=== PATIENT | female | born 1945 | race Caucasian/White ===

== ENCOUNTER 2022-12-14 21:25 | Inpatient (IN) ==
[2022-12-14 21:51] LABS: ABS Basophils 0.1 10^3/ul (0-0.2); ABS Lymphocytes 0.4 10^3/ul (1.0-4.8); ABS Monocytes 0.8 10^3/ul (0-0.8); ABS Neutrophils 8.2 10^3/ul (1.5-7.7); Eosinophil % 0.4 %; Hematocrit 23 % (35-47); Hemoglobin 7.4 g/dL (12.0-16.0); Lymphocyte % 3.8 %; Mean Corpuscular HGB Conc 33 g/dL (31-36); Mean Corpuscular Hemoglobin 32 pg (27-31); Mean Corpuscular Volume 96 fL (80-97); Nucleated Red Blood Cells % 0.1; Platelet Count 165 10^3/uL (150-450); Red Blood Count 2.35 10^6 /uL (3.70-4.87); Red Cell Distribution Width 18 % (10-15); White Blood Count 9.4 10^3/uL (3.5-10.8)
[2022-12-14 22:08] LABS: INR 5.75 (0.88-1.18)
[2022-12-14 22:15] LABS: High Sens Troponin Baseline 73 pg/mL (<15)
[2022-12-14] MEDS ORDERED: Furosemide 40 mg/4 ml IV VIAL IV SLOW PU ONE (22:16)
[2022-12-14 22:30] LABS: ALT 20 U/L (7-52); Albumin 3.8 g/dL (3.2-5.2); Albumin/Globulin Ratio 1.7 (1-3); Alkaline Phosphatase 73 U/L (35-149); Blood Urea Nitrogen 21 mg/dL (6-24); CO2 Carbon Dioxide 27 mmol/L (22-32); Calcium 8.8 mg/dL (8.6-10.3); Chloride 100 mmol/L (101-111); Creatinine, Serum 1.32 mg/dL (0.51-0.95); Globulin 2.3 g/dL (2-4); Glucose 144 mg/dL (70-100); Sodium 136 mmol/L (135-145); Total Protein 6.1 g/dL (6.4-8.9); eGFR CKD-EPI 41.6 (>60)
[2022-12-14 23:26] LABS: High Sensitivity Troponin 1 Hr 82 pg/mL (<15)
[2022-12-14 23:32] LABS: Anion Gap 9 mmol/L (2-11)
[2022-12-14] MEDS ORDERED: Levalbuterol HFA INHALER MDI INH PRN (23:41)
[2022-12-15] MEDS ORDERED: Mometasone 220 MCG MDI INH PRN (00:01)
[2022-12-15] MEDS: Ondansetron 4 mg VIAL 2 MG/ML 2 ml VIAL IV PRN ×2 (01:35→20:13)
[2022-12-15 05:44] LABS: Hematocrit 23 % (35-47); Hemoglobin 7.4 g/dL (12.0-16.0); Mean Corpuscular HGB Conc 33 g/dL (31-36); Mean Corpuscular Hemoglobin 31 pg (27-31); Mean Corpuscular Volume 96 fL (80-97); Mean Platelet Volume 8.1 fL (7.4-10.4); Platelet Count 169 10^3/uL (150-450); Red Blood Count 2.38 10^6 /uL (3.70-4.87); Red Cell Distribution Width 18 % (10-15); White Blood Count 5.8 10^3/uL (3.5-10.8)
[2022-12-15 05:46] LABS: Potassium, Whole Blood 2.9 mmol/L (3.4-4.5)
[2022-12-15 05:53] LABS: INR 4.64 (0.88-1.18)
[2022-12-15 06:05] LABS: ABS Eosinophils 0.1 10^3/ul (0-0.6); ABS Lymphocytes 0.7 10^3/ul (1.0-4.8); ABS Monocytes 0.7 10^3/ul (0-0.8); ABS Neutrophils 4.3 10^3/ul (1.5-7.7); Eosinophil % 1.4 %; Lymphocyte % 12.2 %; Nucleated Red Blood Cells % 0.1
[2022-12-15 06:20] LABS: Albumin 3.6 g/dL (3.2-5.2); Calcium 8.6 mg/dL (8.6-10.3); Magnesium 1.9 mg/dL (1.9-2.7); Potassium 3.1 mmol/L (3.5-5.0); Total Bilirubin 1.9 mg/dL (0.2-1.0)
[2022-12-15 06:26] LABS: Albumin/Globulin Ratio 1.6 (1-3); Creatinine, Serum 1.45 mg/dL (0.51-0.95); Globulin 2.2 g/dL (2-4); Phosphorus 4.1 mg/dL (2.5-5.0); Total Protein 5.8 g/dL (6.4-8.9); eGFR CKD-EPI 37.2 (>60)
[2022-12-15] MEDS ORDERED: Potassium Chloride LIQUID 20 MEQ/15 ML LIQUID PO ONE ×2 (06:59→17:08)
[2022-12-15 11:37] LABS: C Reactive Protein 123.12 mg/L (<8.01)
[2022-12-15] MEDS ORDERED: fentaNYL 100 mcg/2 ml 50 MCG/ML VIAL ONE (11:57)
[2022-12-15] MEDS ORDERED: Naloxone 0.4 mg VIAL 0.4 mg/ml 1 ml VIAL ONE (11:57)
[2022-12-15] MEDS ORDERED: Midazolam 5 mg/5 ml VIAL 1 mg/ml 5 ml VIAL (5 mg) ONE (11:57)
[2022-12-15] MEDS ORDERED: Flumazenil 0.5 mg/5 ml 0.1 MG/ML 5 ml VIAL ONE (11:58)
[2022-12-15] MEDS ORDERED: fentaNYL 100 mcg/2 ml 50 MCG/ML VIAL IV SLOW PU ONE (13:06)
[2022-12-15] MEDS ORDERED: Midazolam 10 mg/10 ml VIAL 1 mg/ml 10 ml VIAL (10 mg) IV SLOW PU ONE (13:06)
[2022-12-15] MEDS: NS 0.9% 1000 ml BAG 1,000 ML IV ONE ×2 (13:07→21:17)
[2022-12-15 13:53] LABS: Direct Bilirubin 0.3 mg/dL (0.03-0.18)
[2022-12-15] MEDS ORDERED: cefTRIAXone 2 gm/50 mL D5W 2 GM/50 ML BAG IV SCH (17:30)
[2022-12-15] MEDS: cefTRIAXone 1 gm/50 mL D5W 1 GM/50 ML BAG IV SCH (18:38)
[2022-12-15] MEDS: Multivitamins/Minerals TAB PO SCH (19:13)
[2022-12-15 20:31] LABS: Ferritin 732.9 ng/mL (11-307)
[2022-12-15] MEDS ORDERED: Furosemide 40 mg/4 ml IV VIAL IV SLOW PU ONE (20:36)
[2022-12-15] MEDS: KCL 20 MEQ/100 ML IVPREMIX 20 MEQ/100 ML BAG IV SCH (22:09)
[2022-12-15] MEDS: Senna TAB 8.6 mg TAB PO SCH (22:11)
[2022-12-16] MEDS: KCL 20 MEQ/100 ML IVPREMIX 20 MEQ/100 ML BAG IV SCH ×5 (02:30→17:34)
[2022-12-16] MEDS ORDERED: KCL 20 MEQ/100 ML IVPREMIX 20 MEQ/100 ML BAG ONE (06:35)
[2022-12-16] MEDS ORDERED: Furosemide 20 mg/2 ml IV VIAL IV ONE (08:00)
[2022-12-16] MEDS: Multivitamins/Minerals TAB PO SCH (08:34)
[2022-12-16 08:36] LABS: ABS Basophils 0.1 10^3/ul (0-0.2); ABS Eosinophils 0.1 10^3/ul (0-0.6); ABS Lymphocytes 0.5 10^3/ul (1.0-4.8); ABS Monocytes 0.6 10^3/ul (0-0.8); ABS Neutrophils 4.9 10^3/ul (1.5-7.7); Eosinophil % 1.5 %; Hematocrit 20 % (35-47); Hemoglobin 6.1 g/dL (12.0-16.0); Lymphocyte % 8.5 %; Mean Corpuscular HGB Conc 31 g/dL (31-36); Mean Corpuscular Hemoglobin 31 pg (27-31); Mean Corpuscular Volume 98 fL (80-97); Mean Platelet Volume 8.9 fL (7.4-10.4); Nucleated Red Blood Cells % 0.1; Platelet Count 172 10^3/uL (150-450); Red Blood Count 1.99 10^6 /uL (3.70-4.87); Red Cell Distribution Width 18 % (10-15); White Blood Count 6.2 10^3/uL (3.5-10.8)
[2022-12-16 08:47] LABS: INR 5.41 (0.88-1.18)
[2022-12-16 09:00] LABS: Calcium 7.8 mg/dL (8.6-10.3); Creatinine, Serum 1.47 mg/dL (0.51-0.95); eGFR CKD-EPI 36.5 (>60)
[2022-12-16] MEDS ORDERED: Lactated Ringers 1000 ml BAG 1,000 ML IV ONE (11:03)
[2022-12-16 18:11] LABS: ABS Eosinophils 0.1 10^3/ul (0-0.6); ABS Lymphocytes 0.5 10^3/ul (1.0-4.8); ABS Monocytes 0.5 10^3/ul (0-0.8); ABS Neutrophils 4.9 10^3/ul (1.5-7.7); Eosinophil % 2.1 %; Hematocrit 24 % (35-47); Hemoglobin 7.5 g/dL (12.0-16.0); Lymphocyte % 7.8 %; Mean Corpuscular HGB Conc 31 g/dL (31-36); Mean Corpuscular Hemoglobin 30 pg (27-31); Mean Corpuscular Volume 97 fL (80-97); Mean Platelet Volume 8.8 fL (7.4-10.4); Platelet Count 180 10^3/uL (150-450); Red Blood Count 2.49 10^6 /uL (3.70-4.87); Red Cell Distribution Width 18 % (10-15)
[2022-12-16] MEDS: cefTRIAXone 1 gm/50 mL D5W 1 GM/50 ML BAG IV SCH (18:40)
[2022-12-16] MEDS: Senna TAB 8.6 mg TAB PO SCH (20:53)
[2022-12-16 21:42] LABS: Calcium 8.2 mg/dL (8.6-10.3); Creatinine, Serum 1.63 mg/dL (0.51-0.95); Potassium 5.4 mmol/L (3.5-5.0); eGFR CKD-EPI 32.3 (>60)
[2022-12-16] MEDS ORDERED: SODIUM ZIRCONIUM CYCLOSILICATE 5 GM PACKET PO SCH (22:00)
[2022-12-17 06:03] LABS: ABS Basophils 0.1 10^3/ul (0-0.2); ABS Eosinophils 0.2 10^3/ul (0-0.6); ABS Lymphocytes 0.5 10^3/ul (1.0-4.8); ABS Monocytes 0.5 10^3/ul (0-0.8); ABS Neutrophils 4.3 10^3/ul (1.5-7.7); Eosinophil % 2.8 %; Hematocrit 25 % (35-47); Hemoglobin 7.9 g/dL (12.0-16.0); Lymphocyte % 9.4 %; Mean Corpuscular HGB Conc 32 g/dL (31-36); Mean Corpuscular Hemoglobin 31 pg (27-31); Mean Corpuscular Volume 96 fL (80-97); Mean Platelet Volume 8.6 fL (7.4-10.4); Platelet Count 168 10^3/uL (150-450); Red Blood Count 2.58 10^6 /uL (3.70-4.87); Red Cell Distribution Width 18 % (10-15); White Blood Count 5.6 10^3/uL (3.5-10.8)
[2022-12-17 06:24] LABS: Calcium 8.5 mg/dL (8.6-10.3); Creatinine, Serum 1.43 mg/dL (0.51-0.95); Potassium 4.6 mmol/L (3.5-5.0); eGFR CKD-EPI 37.8 (>60)
[2022-12-17] MEDS ORDERED: Furosemide 20 mg/2 ml IV VIAL IV ONE ×2 (07:21→11:44)
[2022-12-17] MEDS: Multivitamins/Minerals TAB PO SCH (09:14)
[2022-12-17 12:17] LABS: Magnesium 1.9 mg/dL (1.9-2.7)
[2022-12-17 12:18] LABS: INR 2.54 (0.88-1.18)
[2022-12-17] MEDS ORDERED: Polyethylene Glycol 3350 17 GM PACKET PO PRN (13:55)
[2022-12-17] MEDS: Senna TAB 8.6 mg TAB PO SCH (21:19)
[2022-12-18 07:04] LABS: ABS Basophils 0.1 10^3/ul (0-0.2); ABS Eosinophils 0.1 10^3/ul (0-0.6); ABS Lymphocytes 0.6 10^3/ul (1.0-4.8); ABS Monocytes 0.5 10^3/ul (0-0.8); ABS Neutrophils 3.3 10^3/ul (1.5-7.7); Eosinophil % 2.6 %; Hematocrit 26 % (35-47); Hemoglobin 8.5 g/dL (12.0-16.0); Lymphocyte % 12.5 %; Mean Corpuscular HGB Conc 32 g/dL (31-36); Mean Corpuscular Hemoglobin 31 pg (27-31); Mean Corpuscular Volume 96 fL (80-97); Mean Platelet Volume 9.1 fL (7.4-10.4); Platelet Count 197 10^3/uL (150-450); Red Blood Count 2.73 10^6 /uL (3.70-4.87); Red Cell Distribution Width 18 % (10-15); White Blood Count 4.6 10^3/uL (3.5-10.8)
[2022-12-18 07:06] LABS: Calcium 8.9 mg/dL (8.6-10.3); Creatinine, Serum 1.37 mg/dL (0.51-0.95); Potassium 4.3 mmol/L (3.5-5.0); eGFR CKD-EPI 39.8 (>60)
[2022-12-18 07:09] LABS: INR 1.85 (0.88-1.18)
[2022-12-18 08:28] LABS: Magnesium 1.9 mg/dL (1.9-2.7)
[2022-12-18] MEDS: Multivitamins/Minerals TAB PO SCH (08:42)
[2022-12-18] MEDS ORDERED: Furosemide 40 mg/4 ml IV VIAL IV ONE (10:00)
[2022-12-18] MEDS: Ondansetron 4 mg VIAL 2 MG/ML 2 ml VIAL IV PRN (10:29)
[2022-12-18] MEDS ORDERED: Warfarin per PHARMACY **NOTE FOLLOW UP SCH ×2 (14:00→17:53)
[2022-12-18 14:03] LABS: ABS Eosinophils 0.1 10^3/ul (0-0.6); ABS Lymphocytes 0.4 10^3/ul (1.0-4.8); ABS Monocytes 0.5 10^3/ul (0-0.8); Eosinophil % 1.2 %; Hematocrit 28 % (35-47); Hemoglobin 8.8 g/dL (12.0-16.0); Lymphocyte % 8.5 %; Mean Corpuscular HGB Conc 32 g/dL (31-36); Mean Corpuscular Hemoglobin 31 pg (27-31); Mean Corpuscular Volume 96 fL (80-97); Mean Platelet Volume 8.7 fL (7.4-10.4); Platelet Count 232 10^3/uL (150-450); Red Blood Count 2.85 10^6 /uL (3.70-4.87); Red Cell Distribution Width 18 % (10-15)
[2022-12-18 14:35] LABS: Creatinine, Serum 1.41 mg/dL (0.51-0.95); eGFR CKD-EPI 38.4 (>60)
[2022-12-18 14:54] LABS: Haptoglobin <14 mg/dL (30 - 200)
[2022-12-18] MEDS: Heparin 5000 UNITS/ML 1 mL VIAL IV SCH (17:30)
[2022-12-18] MEDS: Heparin DRIP 25,000 UNITS BAG 25,000 UNITS/500 ML BAG IV SCH (17:35)
[2022-12-18] MEDS: Senna TAB 8.6 mg TAB PO SCH (22:29)
[2022-12-19 08:08] LABS: ABS Basophils 0.1 10^3/ul (0-0.2); ABS Eosinophils 0.1 10^3/ul (0-0.6); ABS Lymphocytes 0.5 10^3/ul (1.0-4.8); ABS Monocytes 0.5 10^3/ul (0-0.8); ABS Neutrophils 2.9 10^3/ul (1.5-7.7); Eosinophil % 2.4 %; Hematocrit 25 % (35-47); Lymphocyte % 12.4 %; Mean Corpuscular HGB Conc 32 g/dL (31-36); Mean Corpuscular Hemoglobin 31 pg (27-31); Mean Corpuscular Volume 96 fL (80-97); Mean Platelet Volume 8.6 fL (7.4-10.4); Platelet Count 189 10^3/uL (150-450); Red Blood Count 2.61 10^6 /uL (3.70-4.87); Red Cell Distribution Width 18 % (10-15); White Blood Count 4.1 10^3/uL (3.5-10.8)
[2022-12-19 08:19] LABS: Rapid COVID-19 Molecular Undetected (Undetected)
[2022-12-19 08:54] LABS: Calcium 8.7 mg/dL (8.6-10.3); Creatinine, Serum 1.44 mg/dL (0.51-0.95); Magnesium 1.9 mg/dL (1.9-2.7); eGFR CKD-EPI 37.5 (>60)
[2022-12-19] MEDS: Multivitamins/Minerals TAB PO SCH (09:00)
[2022-12-19 09:53] LABS: Activated Partial Thrombo Time 40.2 seconds (26.0-38.0); INR 1.71 (0.88-1.18)
[2022-12-19 10:20] LABS: Potassium 4.1 mmol/L (3.5-5.0)
[2022-12-19] MEDS: Ondansetron 4 mg VIAL 2 MG/ML 2 ml VIAL IV PRN (10:50)
[2022-12-19] MEDS: Heparin 5000 UNITS/ML 1 mL VIAL IV SCH (11:57)
[2022-12-19 14:12] VITALS: BP 129/51
[2022-12-19] MEDS: Heparin DRIP 25,000 UNITS BAG 25,000 UNITS/500 ML BAG IV SCH (16:24)
[2022-12-19] MEDS ORDERED: Warfarin DAILY REMINDER **NOTE FOLLOW UP SCH (17:00)
== END 2022-12-19 16:30 | disposition short-term general hospital (02) | DRG 292 ==
LOC: ED 21:25 → EDHOLD 22:59 → SUATTDRO 22:59 → EDHOLD 12-15 15:31 → MEDTELE 12-15 16:46
PROVIDERS: ADMIT Hospitalist; ATTEND Hospitalist